=== PATIENT | male | born 1975 | race Hispanic/Latino ===

== ENCOUNTER 2021-02-17 05:38 | Emergency (ER) | payer OTHER ==
[~2021-02-17] VITALS: Ht 165.1 cm; Wt 79.4 kg
[2021-02-17] MEDS ORDERED: LEVETIRACETAM 500 MG/5 ML SD VIAL IV ONE (05:59)
[2021-02-17] MEDS ORDERED: LEVETIRACETAM 1,500 MG in 0.9%NACL 100ML 100 ML IV ONE (06:00)
[2021-02-17 06:20] LABS: BASOPHILS % (AUTO) 0.8 % (0.0-5.0); EOSINOPHILS % (AUTO) 1.8 % (0.0-8.0); HEMATOCRIT 42.6 % (42-54); LYMPHOCYTES % (AUTO) 18.3 % (21.0-51.0); MEAN CORPUSCULAR HEMOGLOBIN 31.2 pg (27.0-33.0); MEAN CORPUSCULAR VOLUME 91.6 fL (79-99); MONOCYTES % (AUTO) 8.8 % (3.0-13.0); NEUTROPHILS % (AUTO) 69.6 % (40.0-77.0); PLATELET COUNT (AUTO) 234 K/uL (130-400); RED BLOOD CELL COUNT(AUTO) 4.65 MIL/uL (4.50-6.20); WHITE BLOOD COUNT (AUTO) 12.2 K/uL (4.8-10.8)
[2021-02-17 06:34] LABS: ALBUMIN 3.5 g/dL (3.5-5.0); BILIRUBIN,TOTAL 0.1 mg/dL (0.2-1.0); CREATININE 0.7 mg/dL (0.5-1.5); POTASSIUM 3.7 mmol/L (3.5-5.1)
[2021-02-17 07:48] LABS: AMPHET/METH SCREEN,URINE NEGATIVE (NEGATIVE); BARBITURATE SCREEN, URINE NEGATIVE (NEGATIVE); BENZODIAZEPINES SCREEN,URINE NEGATIVE (NEGATIVE); CANNABINOID SCREEN,URINE NEGATIVE (NEGATIVE); COCAINE SCREEN,URINE NEGATIVE (NEGATIVE); OPIATE SCREEN,URINE NEGATIVE (NEGATIVE); PHENCYCLIDINE SCREEN,URINE NEGATIVE (NEGATIVE)
[2021-02-17] MEDS ORDERED: LEVE-43 PO (07:56)
[2021-02-17 08:02] VITALS: BP 124/74
== END 2021-02-17 08:07 | disposition home or self-care (01) ==
LOC: EDH 05:38
DX: R56.9 Unspecified convulsions (principal); Z79.899 Other long term (current) drug therapy
CPT/HCPCS: 36415; 80053; 80305; 85025; 93005; 96365; 99284; J1953 ×2

== ENCOUNTER 2021-04-06 02:29 | Emergency (ER) | payer OTHER ==
[~2021-04-06] VITALS: Ht 162.6 cm; Wt 66.7 kg
[~2021-04-06 02:29] MED LIST: LEVE-43 PO
[2021-04-06 02:35] VITALS: BP 124/82
[2021-04-06] MEDS ORDERED: LORAZEPAM 2 MG/ML 1 ML VIAL ONE (03:29)
[2021-04-06] MEDS ORDERED: LEVETIRACETAM 1,500 MG in 0.9%NACL 100ML 100 ML IV ONE (03:30)
[2021-04-06] MEDS ORDERED: 0.9%NACL 100ML 100 ML ONE (03:33)
[2021-04-06] MEDS ORDERED: LEVETIRACETAM 500 MG/5 ML SD VIAL IV ONE (03:33)
[2021-04-06] MEDS ORDERED: LEVE-43 PO (04:56)
== END 2021-04-06 05:51 | disposition home or self-care (01) ==
LOC: EDH 02:29
DX: S80.01XA Contusion of right knee, initial encounter (principal); S00.83XA Contusion of other part of head, initial encounter; R56.9 Unspecified convulsions; W06.XXXA Fall from bed, initial encounter; Y93.89 Activity, other specified; Y92.89 Other specified places as the place of occurrence of the external cause; Y99.8 Other external cause status
CPT/HCPCS: 70450; 70486; 73562; 96365; 96375; 99284; J1953; J2060